=== PATIENT | female | born 1965 | race Caucasian/White ===

== ENCOUNTER 2024-01-18 13:42 | Emergency (ER) | payer OTHER, MEDICAID, SELFPAY ==
[2024-01-18 13:52] VITALS: BP 107/61; PULSE 80; RESP 16; TEMP 37; O2SAT 99; BMI 17.9
--- NOTE | 2024-01-18 14:35 | ED_ITS ---
HPI - URI/Sore Throat <Radha Hunt PA-C - Last Filed: 01/18/24 16:15> General Chief Complaint: Upper Respiratory Symptoms Stated Complaint: Headache/cough Time Seen by Provider: 01/18/24 14:09 Source: carburetor expert Mode of arrival: Ambulatory History of Present Illness HPI Narrative: [employer] language line used for Samoan interpretation. 58-year-old woman with history of migraines presents with concern for headache and URI symptoms. Patient states that on Friday 5 days ago she developed a mild sore throat and laryngitis and ultimately lost her voice, she also has been having sinus congestion that is more left-sided a mild cough that has recently been slightly productive with some mucus coughing up in the mornings and then in the last few days has had a left-sided frontal headache that feels different than her migraines. She took a home COVID test that was negative. 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 She also acknowledges she has been having some joint pains over the last few days but denies muscle aches. Denies any fevers or chills also denies nausea vomiting diarrhea, vision change, shortness of breath, pain with breathing or coughing or other symptoms. She has tried cough syrup and has also tried an allergy eye drop with limited relief. She states the Tylenol and ibuprofen have been helpful for her headache. She last took those medications this morning around 10:00 a.m. (one tablet each). Related Data Previous Rx's Medication Instructions Recorded benzonatate 100 mg capsule 100 mg PO TID PRN cough #21 caps 01/18/24 codeine 10 mg-guaifenesin 100 mg/5 5 ml PO Q6H PRN cold symptoms 7 01/18/24 mL oral liquid days #120 mL Allergies Allergy/AdvReac Type Severity Reaction Status Date / Time No Known Drug Allergies Allergy Verified 01/18/24 13:52 Review of Systems <Radha Hunt PA-C - Last Filed: 01/18/24 16:15> Review of Systems Narrative: See HPI Patient History <Radha Hunt PA-C - Last Filed: 01/18/24 16:15> Social History Smoking Status: Never smoker Smoking Status: Never smoker Substance Use Type: does not use Exam <Radha Hunt PA-C - Last Filed: 01/18/24 16:15> Narrative Exam Narrative: GENERAL: [58] year old patient appears stated age. Well-developed patient, in mild distress, nontoxic appearing. HEAD: Atraumatic. Normocephalic. EYES: Pupils equal round and reactive. Extraocular motions intact. No scleral icterus. No injection or drainage. ENT: There is nasal congestion present; Nose without bleeding, purulent drainage. Throat has some mild erythema at the tonsilar pillar, without tonsillar hypertrophy or exudate. Airway patent. Left ear canal normal in appea edgardo, the left TM is retracted and mildly erythematous without effusion NECK: No lymphadenopathy noted Trachea midline. Non tender CARDIOVASCULAR: Regular rate and rhythm without murmurs, gallops, or rubs. RESPIRATORY: Occasional dry sounding cough. Clear to auscultation. Breath sounds equal bilaterally. No wheezes, rales, or rhonchi. GASTROINTESTINAL: Abdomen nondistended. EXTREMITIES: No edema or joint tenderness. NEURO: AOx3. SKIN: No rash or erythema of visible areas Initial Vital Signs Initial Vital Signs: Vital Signs Temperature 98.6 F 01/18/24 13:52 Pulse Rate 80 01/18/24 13:52 Respiratory Rate 16 01/18/24 13:52 Blood Pressure 107/61 01/18/24 13:52 Pulse Oximetry 99 01/18/24 13:52 Oxygen Delivery Method Room Air 01/18/24 13:52 <Ophelia Costa MD - Last Filed: 01/18/24 16:21> Initial Vital Signs Initial Vital Signs: Vital Signs Temperature 98.6 F 01/18/24 13:52 Pulse Rate 80 01/18/24 13:52 Respiratory Rate 16 01/18/24 13:52 Blood Pressure 107/61 01/18/24 13:52 Pulse Oximetry 99 01/18/24 13:52 Oxygen Delivery Method Room Air 01/18/24 13:52 Course <Radha Hunt PA-C - Last Filed: 01/18/24 16:15> Orders Ordered: ED Orders 01/18/24 14:22 Covid-19 + FLU A/B + RSV - PCR Stat Discontinued Medications Acetaminophen (Acetaminophen 325 Mg Tablet) 650 mg PO NOW ONE Stop: 01/18/24 14:35 Last Admin: 01/18/24 14:57 Dose: 650 mg Documented By: PADMINI Benzonatate (Benzonatate 100 Mg Capsule) 100 mg PO NOW ONE Stop: 01/18/24 14:35 Last Admin: 01/18/24 14:57 Dose: 100 mg Documented By: PADMINI Ibuprofen (Ibuprofen 400 Mg Tablet) 400 mg PO NOW ONE Stop: 01/18/24 14:35 Last Admin: 01/18/24 14:56 Dose: 400 mg Documented By: PADMINI Vital Signs Vital signs: Vital Signs - 8 hr 01/18/24 13:52 01/18/24 16:11 Temperature 98.6 F Pulse Rate 80 70 Respiratory Rate 16 18 Blood Pressure 107/61 105/69 Pulse Oximetry 99 99 Oxygen Delivery Method Room Air Room Air <Ophelia Costa MD - Last Filed: 01/18/24 16:21> Orders Ordered: ED Orders 01/18/24 14:22 Covid-19 + FLU A/B + RSV - PCR Stat Discontinued Medications Acetaminophen (Acetaminophen 325 Mg Tablet) 650 mg PO NOW ONE Stop: 01/18/24 14:35 Last Admin: 01/18/24 14:57 Dose: 650 mg Documented By: PADMINI Benzonatate (Benzonatate 100 Mg Capsule) 100 mg PO NOW ONE Stop: 01/18/24 14:35 Last Admin: 01/18/24 14:57 Dose: 100 mg Documented By: PADMINI Ibuprofen (Ibuprofen 400 Mg Tablet) 400 mg PO NOW ONE Stop: 01/18/24 14:35 Last Admin: 01/18/24 14:56 Dose: 400 mg Documented By: PADMINI Vital Signs Vital signs: Vital Signs - 8 hr 01/18/24 13:52 01/18/24 16:11 Temperature 98.6 F Pulse Rate 80 70 Respiratory Rate 16 18 Blood Pressure 107/61 105/69 Pulse Oximetry 99 99 Oxygen Delivery Method Room Air Room Air MDM - URI/Sore Throat <Radha Hunt PA-C - Last Filed: 01/18/24 16:15> Differential Diagnosis Differential diagnosis: Likely upper respiratory infection, otitis media, sinusitis, viral infection and influenza Medical Records Attestation: I reviewed the patient's medical records. Lab Data Attestation: I reviewed the patient's lab results. Labs: Lab Results 01/18/24 Range/Units 14:22 SARS-CoV-2 (PCR) Negative (Negative) Influenza A (RT-PCR) Flu a negative (NEGATIVE) Influenza B (RT-PCR) Flu b negative (NEGATIVE) RSV (PCR) Negative (Negative) [facility] Narrative Medical decision making narrative: This is a generally healthy well-appearing 58-year-old Samoan speaking woman who presents with concern for upper respiratory symptoms with left-sided headache. Symptoms began 5 days ago and while laryngitis resolved, her headache recently worsened. This has been relieved by Tylenol and ibuprofen. Patient history and exam as well as discharge performed with Samoan language telephone medical lab director as patient speaks somewhat limited Citizen Of [place]. Based on exam strong suspicion for viral illness, patient had a negative home COVID test and discussed pursuing additional viral testing today which she is agreeable to. Testing for COVID flu a flu B and RSV all returned negative. A strep swab was not obtained as patient has no significant sore throat and her throat exam is not suggest bacterial pharyngitis. Patient has not had fevers chills nausea vomiting diarrhea or other concerning symptoms her symptoms certainly fit with a viral picture, prescription today for benzonatate, as well as guaifenesin with codeine for cough, she is also advised she may want to try a nasal decongestant spray [id number] such as Flonase for her sinus symptoms. Based on duration of symptoms I have low suspicion for bacterial sinusitis and no antibiotics are prescribed at this time. Return precautions provided, follow-up plan discussed, all questions answered. <Ophelia Costa MD - Last Filed: 01/18/24 16:21> Lab Data Labs: Lab Results 01/18/24 Range/Units 14:22 SARS-CoV-2 (PCR) Negative (Negative) Influenza A (RT-PCR) Flu a negative (NEGATIVE) Influenza B (RT-PCR) Flu b negative (NEGATIVE) RSV (PCR) Negative (Negative) Discharge Plan Departure Patient Disposition: Home Clinical Impression: Viral infection Upper respiratory infection Qualifiers: URI type: unspecified viral URI Qualified Code(s): J06.9 - Acute upper respiratory infection, unspecified Activity Restrictions/Additional Instructions: *You have been diagnosed with [viral illness/upper respiratory infection] *What to do: *Please continue to take your regular medications as directed. [2 ] New medication prescriptions sent to your pharmacy: [Benzonatate, codeine-guaifenesin] [ ] New medication written as a paper prescription [ ] No new medications given *Please follow up with your primary care provider in 2-3 days, call for an appointment. Let them know you were seen in the Emergency Department and that we ask that you be seen in follow up. We will electronically transmit a record of today's note if your PCP is in our system. We did viral testing today checking for flu a, flu B, RSV and COVID. These came back negative however based on your symptoms and exam I do suspect that you are suffering from a viral illness there are many viruses that can cause her symptoms that we did not test for today. I have prescribed 2 medications to help with your symptoms. In addition to try these medicines for cough and throat discomfort you may want to try a nasal spray decongestant such as Flonase which you can get [id number] at the pharmacy. You should continue with Tylenol and ibuprofen for headache pain however if your headache is feeling like a migraine you should use your regular migraine medicine. I understand you have to be up nights for work but please do your best to get some rest and continue to drink plenty of fluids also do your best to rest her voice so that you do not get laryngitis (loss of voice) again. If you start having fevers or have worsening symptoms please make sure you get re-evaluated. *If you do not have a primary care provider please contact the [facility] Resource line at [phone]. They will ask some questions about your medical history and help get you set up with a doctor in the community. *Return to Emergency Department if you should have any new, worsening or concerning symptoms, such as [fever greater than 101 F, shaking chills, worsening pain, persistent vomiting or other bothersome symptoms] Prescriptions: New benzonatate 100 mg capsule 100 mg PO TID PRN (Reason: cough) Qty: 21 1RF codeine-guaifenesin 10-100 mg/5 mL liquid 5 ml PO Q6H PRN (Reason: cold symptoms) 7 Days Qty: 120 0RF Referrals: Miscellaneous,Doctor, [Primary Care Provider] - Stand Alone Forms: Patient Portal/API ED Sign-out <Ophelia Costa MD - Last Filed: 01/18/24 16:21> Cosign ED Attending Cosignature Attestation: I did not see this patient. I was available all times for consultation.
--- NOTE | 2024-01-18 14:36 | CM.MNRNOTE ---
language line used. Jorge#[id number]. Ukranian. 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 she started feeling sick with cold on friday. c/o voice changes/loss, joint pain, cough, pain around left eye, cheek, ear and back of head. denies fever, n/v, aches. States she was feeling improved with lots of water, tea, dayquill, visine, tylenol and ibuprofen. biggest complaint at this time is the continuing headache.
[2024-01-18] MEDS: IBUPROFEN 400 MG TABLET PO (14:56)
[2024-01-18] MEDS: BENZONATATE 100 MG CAPSULE PO (14:57)
[2024-01-18] MEDS: ACETAMINOPHEN 325 MG TABLET 650 MG PO (14:57)
[2024-01-18 15:18] LABS: Influenza A - CEPHEID Flu A NEGATIVE (NEGATIVE); Influenza B - CEPHEID Flu B NEGATIVE (NEGATIVE); Respiratory Syncytial Virus Negative (Negative)
[2024-01-18 15:22] LABS: COVID-19 CEPHEID 4-PLEX PCR Negative (Negative)
[2024-01-18 16:11] VITALS: BP 105/69; PULSE 70; RESP 18; O2SAT 99
== END 2024-01-18 16:13 | disposition home or self-care (01) ==
PROVIDERS: Emergency Provider Student in an Organized Health Care Education/Training Program
DX: J06.9 Acute upper respiratory infection, unspecified (principal); Z20.822 Contact with and (suspected) exposure to COVID-19
CPT/HCPCS: 0241U; 99283